=== PATIENT | female | born 1950 | race Caucasian/White ===

== ENCOUNTER → 2018-03-26 | Outpatient (CLI) | payer MEDICARE ==
[~2018-03-26] MED LIST: ASP325 PO; ASPI-715 PO; ATEN-1; CALC-547 PO; CLO75 PO; CYAN50TA3 PO; EST42T VG; FISH OIL1 CAP PO; FLUT16SP20 NS; LANS30CA70 PO; LEV112 PO; LEVE100047 PO; LOR5/325 PO; LORA-674 PO; METH4TAB57 PO; METXR500 PO; MULT1CAP41 PO; NIA100 PO; PER PO; PRA20 PO; PYRI200T9 PO; RAM25 PO; RAMI2.5C43; THYR120T10 PO; TOPI100T PO; TOPI50TA99 PO
--- NOTE | 2018-03-26 16:21 | RADIOLOGY IMAGING REPORT ---
FACILITY: [facility] [place] PATIENT NAME: LUISA TORRES : [id number] MR: [id number] V: [id number] EXAM DATE: ORDERING PHYSICIAN: ANGELIC ORELLANA TECHNOLOGIST: Anitha Camilo PROCEDURE:BILATERAL DIGITAL SCREENING MAMMOGRAM WITH CAD ASSISTED INTERPRETATION & 3D TOMOSYNTHESIS COMPARISON:Prior mammograms 12/07/16. INDICATIONS:SCREENING FINDINGS: The breasts are almost entirely fatty. The Left breast appears larger than the Right. The parenchymal pattern has remained stable allowing for difference in mammographic technique & patient positioning. DIAGNOSTIC CATEGORY 1--NEGATIVE. RECOMMENDATIONS: ROUTINE MAMMOGRAM AND CLINICAL EVALUATION. IMPRESSION: BIRADS 1: Negative. No significant abnormality is seen. Dictated by: Patricia Champagne M.D. on 03/26/2018 at 14:33 Transcribed by: ALFA on 03/26/2018 at 14:50 Approved by: Patricia Champagne M.D. on 03/26/2018 at 16:20 [facility]
== END ==
LOC: MAMO 00:19
PROVIDERS: ATTEND Obstetrics & Gynecology
DX: Z12.31 Encounter for screening mammogram for malignant neoplasm of breast (principal)
CPT/HCPCS: 77063; 77067

== ENCOUNTER → 2018-06-18 | Outpatient (REF) | payer MEDICARE | LOC: ZZSENDIN 13:58 | PROVIDERS: ATTEND Physician Assistant | DX: N39.0 Urinary tract infection, site not specified (principal) | CPT/HCPCS: 87088 ==